=== PATIENT | male | born 1985 | race Caucasian/White ===

== ENCOUNTER 2022-07-30 15:53 | Emergency (ER) | payer SELFPAY ==
[2022-07-30] MEDS ORDERED: Sodium Chloride 0.9% 10 ML Syringe FLUSH PRN (16:10)
[2022-07-30] MEDS ORDERED: Potassium Chloride 20 MEQ Tab.ER PO ONE (17:41)
== END 2022-07-30 18:07 | disposition home or self-care (01) ==
LOC: JD.ED 15:53
DX: L02.31 Cutaneous abscess of buttock (principal)
CPT/HCPCS: 36415; 71045; 80053; 83735; 84484; 85025; 93005; 99285; J3490; 93010; 99283